=== PATIENT | female | born 1985 | race Caucasian/White ===

== ENCOUNTER → 2018-03-17 | Outpatient (REF) ==
[2018-03-17 13:34] LABS: COLLAGEN EPINEPHRINE 127 SECONDS (74-162)
== END ==
LOC: M LAB REF 12:49
DX: Z00.00 Encounter for general adult medical examination without abnormal findings (principal)

== ENCOUNTER → 2020-01-16 | Outpatient (POV) | payer OTHER, MEDICAID | LOC: M PAIN 09:00 | PROVIDERS: ATTEND Nurse Practitioner Family | DX: M46.1 Sacroiliitis, not elsewhere classified (principal); M79.18 Myalgia, other site; M51.27 Other intervertebral disc displacement, lumbosacral region ==

== ENCOUNTER → 2020-01-26 | Outpatient (POV) | payer OTHER, MEDICAID ==
[~2020-01-26] MED LIST: ISOVUE-M 300 61% 15ML VIAL As Ordered ONE; LIDOCAINE 1% SDV 30ML VIAL As Ordered ONE; NORCO, ANEXSIA 5/325MG TABLET (HYDROcodone/ACETAMINOPHEN) As Ordered ONE; diazePAM 5 MG TAB As Ordered ONE; methylPREDNISolone SUSP 40MG/ML 1ML VIAL (DEPO MEDROL) As Ordered ONE
== END ==
LOC: M PAIN 11:00
PROVIDERS: ATTEND Anesthesiology
DX: M51.16 Intervertebral disc disorders with radiculopathy, lumbar region (principal)

== ENCOUNTER → 2020-02-10 | Outpatient (CLI) | payer OTHER | LOC: M PAIN 10:31 | PROVIDERS: ATTEND Nurse Practitioner Family | DX: M51.16 Intervertebral disc disorders with radiculopathy, lumbar region (principal) ==

== ENCOUNTER → 2020-02-18 | Outpatient (CLI) | payer OTHER | LOC: M LABSMTC 10:32 | PROVIDERS: ATTEND Anesthesiology | DX: Z11.59 Encounter for screening for other viral diseases (principal); Z20.828 Contact with and (suspected) exposure to other viral communicable diseases | CPT/HCPCS: C9803; U0003 ==

== ENCOUNTER → 2020-03-13 | Outpatient (CLI) | payer OTHER | LOC: M PAIN 14:00 | PROVIDERS: ATTEND Nurse Practitioner Family | DX: Z53.29 Procedure and treatment not carried out because of patient's decision for other reasons (principal) ==

== ENCOUNTER → 2020-04-27 | Outpatient (CLI) | payer OTHER ==
--- NOTE | 2020-04-30 23:50 | ECWPNPC ---
PATIENT NAME: SUSAN DEL CASTILLO : 1985 GENDER: FEMALE VISIT DATE: 04/27/2020 DISCHARGE DATE: 04/27/20 1043 VISIT LOCKED DATE TIME: PHYSICIAN: JULIETTE QUILES RESOURCE: JULIETTE QUILES REASON FOR APPOINTMENT 1. BACK/RIGHT LEG HISTORY OF PRESENT ILLNESS DEPRESSION SCREENING: PHQ-2 (2015 EDITION) LITTLE INTEREST OR PLEASURE IN DOING THINGS?NOT AT ALL FEELING DOWN, DEPRESSED, OR HOPELESS?NOT AT ALL TOTAL SCORE0 GENERAL: HERE FOR FOLLOW-UP OF CHRONIC LOW BACK PAIN WITH RIGHT LEG RADICULAR SYMPTOMS. RECENT FALL INJURY IN . SHE WAS EVALUATED AT [facility]. LOCATION OF PAIN HAS NOT CHANGED SINCE FALL. CHIEF AREA OF PAIN IS RIGHT LOW BACK AND INTO RIGHT THIGH. PATIENT STATES MRI IMAGING WAS DONE AFTER FALL IN . DENIES NEW ONSET OF BOWEL OR BLADDER INCONTINENCE. ATTENDING PHYSICAL THERAPY DUE TO FRACTURED RIGHT ANKLE AFTER FALL INJURY AND STATES THEY ARE ALSO WORKING ON HER LOWER BACK PAIN. APPEARS VERY UNCOMFORTABLE TODAY. PAIN IS INCREASED WITH ANY PRESSURE OVER HER RIGHT LEG. WAS EVALUATED BY NEUROSURGEON IN [place] AFTER OUR LAST VISIT. THEY DID OFFER SURGERY BUT PATIENT WANTED TO TRY CONSERVATIVE MEASURES FIRST. DISCUSSED SACROILIAC NERVE BLOCK.-. FALL RISK SCREENING: SCREENING :ONE FALL WITH INJURY IN THE PAST YEAR FRACTURED RIGHT FOOT AFTER FALL THRU BATHROOM FLOOR PAIN SCREENING: PATIENT HAS A COMPLAINT OF ACUTE OR CHRONIC PAIN :YES LOCATION OF PAIN:LOW BACK, RIGHT HIP, LEG(S) RIGHT LEG TO KNEE INTENSITY OF PAIN (SCALE OF 1 TO 10):7 WHAT DOES YOUR PAIN FEEL LIKE:ACHING, BURNING, CONTINOUS, SHARP, TENDER, THROBBING, SORE, SHOOTING DURATION:CONTINOUS, CONSTANT PAIN IS INCREASED BY:ACTIVITIES PAIN IS DECREASED BY:USE OF PAIN MEDICATIONS NURSING NOTE: -. PAIN CENTER INTAKE QUESTIONS: DO YOU HAVE A HISTORY OF MRSA? :NO DO YOU TAKE A BLOOD THINNERS? :NO DO YOU HAVE ANY BLEEDING DISORDERS? :NO ANY NEW NUMBNESS OR WEAKNESS IN YOUR LEGS OR ARMS? :NO ANY PACEMAKER,DEFIBRILLATOR, OR DORSAL COLUMN STIMULATOR? :NO DO YOU HAVE ANY RASHES OR OPEN SORES? :NO ARE YOU ALLERGIC TO IV DYE? :NO ARE YOU DIABETIC? :NO ANY NEW PROBLEMS WITH YOUR MEDICATIONS? :NO HAVE YOU RECEIVED A VACCINE IN THE PAST 30 DAYS? :NO DO YOU PLAN TO RECEIVE A VACCINE IN THE NEXT 21 DAYS? :NO DO YOU NEED ANY PRESCRIPTION? :NO DO YOU TAKE ANY IMMUNOSUPPRESSIVE MEDICATIONS? :NO IS THERE A CHANCE YOU COULD BE ? :NO ARE YOU BREAST FEEDING? :NO CURRENT MEDICATIONS TAKING GABAPENTIN 600 MG TABLET TAKE ONE TABLET BY MOUTH THREE TIMES A DAY ORAL TAKING FLUTICASONE PROPIONATE 50 MCG/ACT SUSPENSION SPRAY 1 SPRAY IN EACH NOSTRIL TWICE A DAY NASAL TAKING IBUPROFEN 800 MG TABLET TAKE 1 TABLET BY MOUTH THREE TIMES A DAY NEEDED FOR PAIN ORAL NOT-TAKING CIPROFLOXACIN HCL 250 MG TABLET TAKE ONE TABLET BY MOUTH TWICE A DAY FOR 3 DAYS ORAL NOT-TAKING METHYLPREDNISOLONE 4 MG TABLET THERAPY PACK TAKE BY MOUTH DIRECTED ORAL NOT-TAKING CYCLOBENZAPRINE HCL 10 MG TABLET TAKE 1 TABLET BY MOUTH UP TO 3 TIMES A DAY MAY CAUSE DROWSINESS ORAL NOT-TAKING DIAZEPAM 10 MG TABLET (SCHEDULE IV DRUG) TAKE ONE TABLET BY MOUTH FOUR TIMES A DAY NEEDED MAXIMUM DAILY DOSE 4 ORAL NOT-TAKING PREDNISONE 20 MG TABLET TAKE THREE TABLETS BY MOUTH EVERY DAY ORAL NOT-TAKING TIZANIDINE HCL 4 MG CAPSULE TAKE 1 CAPSULE BY MOUTH EVERY 6 TO 8 HOURS NEEDED ORAL NOT-TAKING CEFDINIR 300 MG CAPSULE TAKE 1 CAPSULE BY MOUTH TWICE DAILY FOR 10 DAYS ORAL MEDICATION LIST REVIEWED AND RECONCILED WITH THE PATIENT PAST MEDICAL HISTORY 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 ACUTE SINUSITIS PAIN IN RIGHT LEG ACUTE SEROUS OTITIS MEDIA URINARY TRACT INFECTION MIGRAINE WITHOUT AURA MAJOR DEPRESSIVE DISORDER SPONTANEOUS ECCYMOSIS POLYNEUROPATHY PAIN LEFT ARM ACUTE RESPIRATORY INFECTION ELEVATED ESR OBESITY ALLERGIES SEASONAL: RASH - ALLERGY SULFA (FOR ALLERGY USE ONLY): SEIZURE - ALLERGY LATEX (FOR ALLERGY USE ONLY): ANAPHYLAXIS - ALLERGY SURGICAL HISTORY 2013 & 2017 EXPL LAPAROTOMY 05/2006 TONSILLECTOMY 08/2017 FAMILY HISTORY FATHER: ALIVE 1963 YRS MOTHER: ALIVE 1967 YRS SIBLINGS: ALIVE FATHER- DIABETES, KIDNEY DISEASEMOTHER - HYPERTENSIONSISTER - KIDNEY DISEASE, HYPERTENSIONBROTHER - KIDNEY DISEASE, HYPERTENSION. SOCIAL HISTORY GENERAL: TOBACCO USE ARE YOU A:NONSMOKER LATEX QUESTIONNAIRE LATEX ALLERGY : HAVE YOU EVER DEVELOPED ANY TYPE OF REACTION AFTER HANDLING LATEX PRODUCTS SUCH RUBBER GLOVES, CONDOMS, DIAPHRAGMS, BALLOONS, SOCKS, OR UNDERWEAR?YES LATEX ALLERGY : HAVE YOU EVER DEVELOPED ANY TYPE OF REACTION DURING OR AFTER DENTAL APPOINTMENT, VAGINAL/RECTAL EXAMINATION, SURGICAL PROCEDURE, OR ANY OTHER EXPOSURE?NO LATEX RISK : HAVE YOU EVER HAD ANY DIFFICULTY BREATHING OR HIVES AFTER EATING OR HANDLING ANY FRUITS, OR VEGETABLES; SUCH KIWI, BANANAS, STONE FRUITS, OR CHESTNUTSNO LATEX RISK : DO YOU HAVE A PREVIOUS PERSONAL HISTORY OF MORE THAN NINE SURGERIES, SPINA BIFIDA, OR REPEATED CATHERIZATIONS? NO LATEX RISK : ARE YOU FREQUENTLY EXPOSED TO LATEX PRODUCTS IN YOUR OCCUPATION?NO DATE ASKED : 04/27/2020 LEARNING BARRIERS / SPECIAL NEEDS CHANGE FROM LAST VISIT?NO BARRIERS TO LEARNING?NO HEARING IMPAIRED?NO VISION IMPAIRED?NO COGNITIVELY IMPAIRED?NO READINESS TO LEARN?YES LEARNING PREFERENCES?NO LEARNING CAPABILITIES PRESENT?YES EMOTIONAL BARRIERS?NO SPECIAL DEVICES?NO FULFILLMENT ASSOCIATE NEEDED?NO DOMESTIC VIOLENCE DO YOU FEEL SAFE IN YOUR ENVIRONMENT?YES PAIN CLINIC PFS, CLERGY, PUBLIC HEALTH REFERRALS HAS THE PATIENT BEEN EDUCATED REGARDING HIS/HER PLAN OF CARE?YES HAS THE PATIENT BEEN EDUCATED REGARDING PAIN, THE RISK FOR PAIN, THE IMPORTANCE OF EFFECTIVE PAIN MANAGEMENT, AND THE PAIN ASSESSMENT PROCESS?YES ADVANCE DIRECTIVE ADVANCE DIRECTIVE DISCUSSED WITH PATIENT:YES PT STATES THAT SHE DOES NOT HAVE HCP, DECLINED INFORMATION HOSPITALIZATION/MAJOR DIAGNOSTIC PROCEDURE NO HOSPITALIZATION HISTORY. REVIEW OF SYSTEMS CONSTITUTIONAL: ANY RECENT FEVER NO . CHILLS NO . WEIGHT CHANGE OF UNKNOWN REASONS NO . GASTROENTEROLOGY: NEW UNEXPLAINABLE CHANGES IN BOWEL CONTROL NO . CONSTIPATION NO . GENITOURINARY: ANY NEW CHANGE IN BLADDER CONTROL? NO . NEUROLOGY: NEW ONSET DIZZINESS OR NEUROLOGICAL CHANGES NOT MENTIONED NO . NEW NUMBNESS OR PAIN PATTERNS NOT MENTIONED AND PERTINENT TO TODAY'S VISIT NO . CARDIOLOGY: NEW CHEST PRESSURE NO . NEW CHEST PAIN NO . RESPIRATORY: UNEXPLAINABLE COUGH NO . NEW SHORTNESS OF BREATH NO . VITAL SIGNS WT 256.8 LBS, HT 54 IN, BMI 61.91 INDEX, BP 131/74 MM HG, HR 87 /MIN, RR 18 /MIN, TEMP 96.7 F, OXYGEN SAT % 100%, SAFE IN ENV? (Y/N) YES, NA INITIALS AW 0949, REVIEWED BY: JAKOB RN @1001. EXAMINATION GENERAL EXAMINATION: GENERAL ALERT,NO DISTRESS . PSYCH AFFECT NORMAL . LUNGS: LUNG SOUNDS ARE CLEAR . HEART: HEART RATE REGULAR . MUSCULOSKELETAL: MST 10/10 BILAT. LOWER EXTREMITIES . LUMBAR: TENDERNESS RIGHT SIJ . DIAGNOSTIC TESTS REVIEWEDMRI L/S SPINE 10/2019. 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 PROCEDURE CODES FA211 ESTABILISHED PATIENT [facility] CHARGE DISPOSITION & COMMUNICATION FOLLOW UP POST PROCEDURE (REASON: RIGHT SIJ) ELECTRONICALLY SIGNED BY ZANE STRONG ON 04/30/2020 AT 03:27 PM EST DISCLAIMER : THIS IS A VISIT SUMMARY EXTRACTED FROM THE [employer] CHART. IT IS NOT A COPY OF THE [employer] PROGRESS NOTE. RASHMI
== END ==
LOC: M PAIN 09:45
PROVIDERS: ATTEND Nurse Practitioner Family
DX: M53.3 Sacrococcygeal disorders, not elsewhere classified (principal); G89.29 Other chronic pain; G43.909 Migraine, unspecified, not intractable, without status migrainosus; Z86.59 Personal history of other mental and behavioral disorders; Z88.2 Allergy status to sulfonamides; Z91.040 Latex allergy status; E66.01 Morbid (severe) obesity due to excess calories; Z68.44 Body mass index [BMI] 60.0-69.9, adult; Z79.899 Other long term (current) drug therapy

== ENCOUNTER → 2020-06-27 | Outpatient (CLI) | payer OTHER | LOC: M LABSMTC 14:11 | PROVIDERS: ATTEND Anesthesiology | DX: Z20.822 Contact with and (suspected) exposure to COVID-19 (principal) ==

== ENCOUNTER → 2020-07-02 | Outpatient (CLI) | payer OTHER ==
[~2020-07-02] MED LIST changes: +BUPIVACAINE HCL 0.25% 30ML VIAL As Ordered ONE; -NORCO, ANEXSIA 5/325MG TABLET (HYDROcodone/ACETAMINOPHEN) As Ordered ONE; +TRIAMCINOLONE ACETONIDE SUSP 40 MG/ML VIAL (J3301) As Ordered ONE; -diazePAM 5 MG TAB As Ordered ONE; +diazePAM 5MG TABLET As Ordered ONE; -methylPREDNISolone SUSP 40MG/ML 1ML VIAL (DEPO MEDROL) As Ordered ONE; +oxyCODONE 5MG TAB As Ordered ONE
--- NOTE | 2020-07-02 16:37 | REP ---
INDICATION: RIGHT SIDED SACRO ILIAC JOINT BLOCK. COMPARISON: None. TECHNIQUE: Three views. 20.5 seconds of fluoroscopy time is reported. FINDINGS: A sequence of 3 last image hold fluoroscopically obtained spot radiographs of the right hip document needle position and contrast injection associated with injection procedure. IMPRESSION: Procedural imaging. <Electronically signed by Magdiel Cancino > 07/02/20 [id number]
--- NOTE | 2020-07-04 01:40 | ECWPNPC ---
PATIENT NAME: SUSAN DEL CASTILLO : 1985 GENDER: FEMALE VISIT DATE: 07/02/2020 DISCHARGE DATE: 07/02/20 1558 VISIT LOCKED DATE TIME: PHYSICIAN: ULISES BAKER MD RESOURCE: ULISES BAKER MD REASON FOR APPOINTMENT 1. RIGHT SACROILIAC JOINT BLOCK HISTORY OF PRESENT ILLNESS GENERAL: -. FALL RISK SCREENING: SCREENING :ONE FALL WITH INJURY IN THE PAST YEAR FRACTURED RIGHT FOOT AFTER FALL THRU BATHROOM FLOOR 02/25 PAIN SCREENING: PATIENT HAS A COMPLAINT OF ACUTE OR CHRONIC PAIN :YES LOCATION OF PAIN:LOW BACK, RIGHT HIP, LEG(S) RIGHT LEG TO KNEE INTENSITY OF PAIN (SCALE OF 1 TO 10):5 WHAT DOES YOUR PAIN FEEL LIKE:ACHING, BURNING, CONTINOUS, SHARP, TENDER, THROBBING, SORE, SHOOTING DURATION:CONTINOUS, CONSTANT PAIN IS INCREASED BY:ACTIVITIES PAIN IS DECREASED BY:USE OF PAIN MEDICATIONS PLAN/GOALS/TREATMENT/INTERVENTION/FOLLOW UP:SEE PLAN PAIN CENTER INTAKE QUESTIONS: DO YOU HAVE A HISTORY OF MRSA? :NO DO YOU TAKE A BLOOD THINNERS? :NO DO YOU HAVE ANY BLEEDING DISORDERS? :NO ANY NEW NUMBNESS OR WEAKNESS IN YOUR LEGS OR ARMS? :NO ANY PACEMAKER,DEFIBRILLATOR, OR DORSAL COLUMN STIMULATOR? :NO DO YOU HAVE ANY RASHES OR OPEN SORES? :NO ARE YOU ALLERGIC TO IV DYE? :NO ARE YOU DIABETIC? :NO ANY NEW PROBLEMS WITH YOUR MEDICATIONS? :NO HAVE YOU RECEIVED A VACCINE IN THE PAST 30 DAYS? :NO DO YOU PLAN TO RECEIVE A VACCINE IN THE NEXT 21 DAYS? :NO DO YOU NEED ANY PRESCRIPTION? :NO DO YOU TAKE ANY IMMUNOSUPPRESSIVE MEDICATIONS? :NO ANY HISTORY OF SEIZURES? :NO ANY HISTORY OF CARDIAC ISSUES OR EVENTS? :NO DO YOU HAVE SLEEP APNEA? :NO ANY RECENT HEAD INJURY? :NO DO YOU HAVE ANY NEW INFECTIONS? :NO IS THERE A CHANCE YOU COULD BE ? :NO ARE YOU BREAST FEEDING? :NO WHEN DID YOU LAST EAT? : 07/02/20 0545 WHEN DID YOU LAST DRINK? : 07/02/20 1200 WHAT DID YOU LAST DRINK? : WATER NAME OF PERSON DRIVING YOU HOME? : FRIEND DO YOU HAVE ANY OTHER QUESTIONS OR CONCERNS? : NO CURRENT MEDICATIONS TAKING GABAPENTIN 600 MG TABLET TAKE ONE TABLET BY MOUTH THREE TIMES A DAY ORAL , NOTES: 07/02/20 1230 TAKING FLUTICASONE PROPIONATE 50 MCG/ACT SUSPENSION SPRAY 1 SPRAY IN EACH NOSTRIL TWICE A DAY NASAL TAKING CYMBALTA 30 MG CAPSULE DELAYED RELEASE PARTICLES 1 CAPSULE ORALLY ONCE A DAY, NOTES: 07/01/20 2100 NOT-TAKING IBUPROFEN 800 MG TABLET TAKE 1 TABLET BY MOUTH THREE TIMES A DAY NEEDED FOR PAIN ORAL NOT-TAKING CIPROFLOXACIN HCL 250 MG TABLET TAKE ONE TABLET BY MOUTH TWICE A DAY FOR 3 DAYS ORAL NOT-TAKING METHYLPREDNISOLONE 4 MG TABLET THERAPY PACK TAKE BY MOUTH DIRECTED ORAL NOT-TAKING CYCLOBENZAPRINE HCL 10 MG TABLET TAKE 1 TABLET BY MOUTH UP TO 3 TIMES A DAY MAY CAUSE DROWSINESS ORAL NOT-TAKING DIAZEPAM 10 MG TABLET (SCHEDULE IV DRUG) TAKE ONE TABLET BY MOUTH FOUR TIMES A DAY NEEDED MAXIMUM DAILY DOSE 4 ORAL NOT-TAKING PREDNISONE 20 MG TABLET TAKE THREE TABLETS BY MOUTH EVERY DAY ORAL NOT-TAKING TIZANIDINE HCL 4 MG CAPSULE TAKE 1 CAPSULE BY MOUTH EVERY 6 TO 8 HOURS NEEDED ORAL NOT-TAKING CEFDINIR 300 MG CAPSULE TAKE 1 CAPSULE BY MOUTH TWICE DAILY FOR 10 DAYS ORAL MEDICATION LIST REVIEWED AND RECONCILED WITH THE PATIENT PAST MEDICAL HISTORY 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 ACUTE SINUSITIS PAIN IN RIGHT LEG, RIGHT FRACTURE TIBIA ACUTE SEROUS OTITIS MEDIA URINARY TRACT INFECTION MIGRAINE WITHOUT AURA MAJOR DEPRESSIVE DISORDER SPONTANEOUS ECCYMOSIS POLYNEUROPATHY PAIN LEFT ARM ACUTE RESPIRATORY INFECTION ELEVATED ESR OBESITY ALLERGIES SEASONAL: RASH - ALLERGY SULFA (FOR ALLERGY USE ONLY): SEIZURE - ALLERGY LATEX (FOR ALLERGY USE ONLY): ANAPHYLAXIS - ALLERGY SOCIAL HISTORY GENERAL: TOBACCO USE ARE YOU A:NONSMOKER LATEX QUESTIONNAIRE LATEX ALLERGY : HAVE YOU EVER DEVELOPED ANY TYPE OF REACTION AFTER HANDLING LATEX PRODUCTS SUCH RUBBER GLOVES, CONDOMS, DIAPHRAGMS, BALLOONS, SOCKS, OR UNDERWEAR?YES KNOWN ALLERGY - PLEASE INDICATE :RUBBER GLOVES, OTHER (DOCUMENT IN NOTES) BANDAIDS LATEX ALLERGY : HAVE YOU EVER DEVELOPED ANY TYPE OF REACTION DURING OR AFTER DENTAL APPOINTMENT, VAGINAL/RECTAL EXAMINATION, SURGICAL PROCEDURE, OR ANY OTHER EXPOSURE?NO LATEX RISK : HAVE YOU EVER HAD ANY DIFFICULTY BREATHING OR HIVES AFTER EATING OR HANDLING ANY FRUITS, OR VEGETABLES; SUCH KIWI, BANANAS, STONE FRUITS, OR CHESTNUTSNO LATEX RISK : DO YOU HAVE A PREVIOUS PERSONAL HISTORY OF MORE THAN NINE SURGERIES, SPINA BIFIDA, OR REPEATED CATHERIZATIONS? NO LATEX RISK : ARE YOU FREQUENTLY EXPOSED TO LATEX PRODUCTS IN YOUR OCCUPATION?NO DATE ASKED : 04/27/2020 ALCOHOL USE: LEONORA FERRIS 06/29/2020 3:20:22 PM > , NO. ALCOHOL SCREENING DID YOU HAVE A DRINK CONTAINING ALCOHOL IN THE PAST YEAR?NO POINTS0 INTERPRETATIONNEGATIVE RECREATIONAL DRUG USE DRUG USE?NO LEARNING BARRIERS / SPECIAL NEEDS CHANGE FROM LAST VISIT?NO BARRIERS TO LEARNING?NO HEARING IMPAIRED?NO VISION IMPAIRED?NO COGNITIVELY IMPAIRED?NO READINESS TO LEARN?YES LEARNING PREFERENCES?NO LEARNING CAPABILITIES PRESENT?YES EMOTIONAL BARRIERS?NO SPECIAL DEVICES?NO CONVENTION SERVICES DIRECTOR NEEDED?NO DOMESTIC VIOLENCE DO YOU FEEL SAFE IN YOUR ENVIRONMENT?YES - HAS THE PATIENT BEEN EDUCATED REGARDING HIS/HER PLAN OF CARE?YES HAS THE PATIENT BEEN EDUCATED REGARDING PAIN, THE RISK FOR PAIN, THE IMPORTANCE OF EFFECTIVE PAIN MANAGEMENT, AND THE PAIN ASSESSMENT PROCESS?YES ADVANCE DIRECTIVE ADVANCE DIRECTIVE DISCUSSED WITH PATIENT:YES PT STATES THAT SHE DOES NOT HAVE HCP, DECLINED INFORMATION VITAL SIGNS WT 254.4 LBS, HT 54 IN, BMI 61.33 INDEX, BP 138/77 MM HG, HR 90 /MIN, RR 18 /MIN, TEMP 97.0 F, OXYGEN SAT % 98%, SAFE IN ENV? (Y/N) YES, NA INITIALS AW 1350, REVIEWED BY: Darian FERRIS MANAGER WOUND CARE. EXAMINATION GENERAL EXAMINATION: THE PATIENT IS ALERT, ORIENTED TIMES THREE AND COOPERATIVE. LUNGS ARE CLEAR TO AUSCULTATION. HEART SHOWS REGULAR RHYTHM, NO MURMURS AND NO GALLOPS. ASSESSMENTS SACROILIITIS, NOT ELSEWHERE CLASSIFIED - M46.1 (PRIMARY) SACROILIAC JOINT DYSFUNCTION - M53.3 TREATMENT SACROILIITIS, NOT ELSEWHERE CLASSIFIED [facility] GUIDANCE (PAIN)[id number] MEDICATION: VALIUM TAB 10MG ORALLY (DIAZEPAM)LEONORA FERRIS 07/02/2020 2:24:37 PM > LOT # [id number] EXP: 03/29. CAROLINARAUDEL ADAMES 07/02/2020 2:25:31 PM > VERIFIED LEONORA FERRIS 07/02/2020 3:43:23 PM > ADMINISTERED AT 1426. MEDICATION: OXYCODONE HCL TAB 10MG ORALLYLEONORA FERRIS 07/02/2020 2:23:48 PM > LOT # [id number] EXP: 07/30. RAUDEL FIGUEROA 07/02/2020 2:24:55 PM > VERIFIED LEONORA FERRIS 07/02/2020 3:43:42 PM > ADMINISTERED AT 1426. COMPLETION OF PROCEDURAL VISIT WHEN MEETS CRITERIA OTHERS NOTES: 06/29/20 1522 PAT COMPLETED WITH PATIENT. PATIENT DENIES ANY CHANGES FROM PREVIOUS VISIT TO FAMILY HISTORY, SURGICAL HISTORY OR HOSPITALIZATIONS. Darian FERRIS RN BSN . PROCEDURES PAIN NURSING RECORD PROCEDURE IN ROOM 1445, PHYSICIAN IN ROOM 1521, START 1530, FINISH 1532, PHYSICIAN OUT OF ROOM 1533, OUT OF ROOM 1539, ECG NORMAL SINUS, PATIENT SHIELDED YES, SAFETY STRAP YES, PREP CHLOROPREP Darian FERRIS RN BSN, DRESSING TEGADERM DR. BAKER LOC: LEONORA FERRIS 07/02/2020 2:45:48 PM > , 1. ALERT, ORIENTED, LOC REMAINED AT BASELINE THROUGHOUT THE PROCEDURE RESP: LEONORA FERRIS 07/02/2020 2:45:48 PM > , 1. REGULAR, NO DYSPNEA COLOR: LEONORA FERRIS 07/02/2020 2:45:48 PM > , 1. PINK SKIN: LEONORA FERRIS 07/02/2020 2:45:48 PM > , 1. WARM, DRY POSITION: LEONORA FERRIS 07/02/2020 2:45:48 PM > , 1. PRONE VITALS: LEONORA FERRIS 07/02/2020 2:47:48 PM > 132/77, 79, 97% RA. LEONORA FERRIS 07/02/2020 3:00:24 PM > 137/81, 84, 97% RA. LEONORA FERRIS 07/02/2020 3:15:08 PM > 140/86, 86, 96% RA. LEONORA FERRIS 07/02/2020 3:29:36 PM > 155/87, 86, 96% RA. LEONORA FERRIS 07/02/2020 3:50:09 PM > 132/76, 85, 97% RA. COMPLETION OF PROCEDURE APPOINTMENT: POST PAIN 09/15, DRESSING SITE DRY AND INTACT, IV N/A, GAIT STEADY, TEACHING COMPLETED, PATIENT ACKNOWLEDGES UNDERSTANDING YES PATIENT GIVEN COVID HANDOUT AND POST PROCEDURE TEACHING, PATIENT VERBALIZED UNDERSTANDING, NO QUESTIONS OR CONCERNS AT THIS TIME., PROCEDURE APPOINTMENT COMPLETED AT BY: Darian FERRIS RN AT 1600. PRE PROCEDURE DIAGNOSIS SACROILITIS, SACROILIAC JOINT DYSFUNCTION POST PROCEDURE DIAGNOSIS SACROILIITIS, SACROILIAC JOINT DYSFUNCTION PROCEDURE RIGHT SACROILIAC JOINT BLOCK SURGEON DR. ULISES BAKER CANOE INSPECTOR FINAL NONE ANESTHESIA LOCAL PRE PROCEDURE NOTE THE PATIENT HAS A HISTORY OF CHRONIC LOW BACK PAIN. I EVALUATED THE PATIENT AND REVIEWED THE CHART. I WENT OVER THE RISKS, BENEFITS AND ALTERNATIVES ASSOCIATED WITH THIS PROCEDURE. I DISCUSSED THAT THE USE OF STEROIDS MAY CONTRIBUTE TO IMMUNOSUPPRESSION OF THE PATIENT'S BODY AGAINST INFECTIONS SUCH COVID-19. THE PATIENT IS AWARE OF THE POTENTIAL COMPLICATIONS ASSOCIATED WITH THIS VIRUS, INCLUDING, BUT NOT LIMITED, . THE PATIENT WOULD LIKE TO PROCEED AND GIVES CONSENT TO PERFORM THE PROCEDURE. THE PATIENT DENIES UNEXPLAINABLE WEIGHT LOSS, FEVER, CHILLS OR NEW CHANGES IN URINARY OR BOWEL CONTROL. THE PATIENT IS COVID-19 NEGATIVE. DESCRIPTION OF PROCEDURE THE PATIENT WAS BROUGHT TO THE PROCEDURE ROOM AND PLACED IN THE PRONE POSITION. THE LUMBOSACRAL AREA WAS CLEANED WITH CHLORAPREP SOLUTION AND DRAPED ASEPTICALLY. THE PROCEDURE WAS DONE UNDER STERILE CONDITIONS. A TIMEOUT WAS PERFORMED WHERE LATERALITY AND THE SITE OF THE PROCEDURE WERE CHECKED AND CONFIRMED WITH EVERYONE IN THE ROOM. UNDER FLUOROSCOPIC GUIDANCE, THE TARGET POINT WAS SELECTED AT THE LOWER BORDER OF THE RIGHT SACROILIAC JOINT. TARGET POINT WAS SELECTED AFTER MEDIAL ROTATION AND TILT OF THE MAGNIFIER OR THE C-ARM. I CONFIRMED AGAIN WITH EVERYONE IN THE ROOM THE LATERALITY OF THE TARGET. LIDOCAINE 0.5% WAS USED TO NUMB THE SKIN AND THE SUBCUTANEOUS TISSUE BELOW IT. SPINAL NEEDLE, 22-GAUGE, WAS ADVANCED UNDER FLUOROSCOPIC GUIDANCE AND FOLLOWING PATIENT FEEDBACK UNTIL THE TARGET WAS TOUCHED. THE POSITION OF THE NEEDLE WAS VERIFIED WITH AP AND OBLIQUE VIEWS. AFTER PROPER POSITION OF THE NEEDLE WAS ACHIEVED, ISOVUE-M DYE 30%, 0.1 ML, WAS INJECTED SHOWING ADEQUATE SPREAD OF THE DYE. KENALOG 40 MG WAS INJECTED. THEN, A SOLUTION OF 3.0 ML OF BUPIVACAINE 0.125% WAS USED TO FLUSH THE NEEDLE. THE MEDICATIONS WERE VERIFIED WITH THE NURSE. THERE WAS NO EVIDENCE OF BLOOD, PARESTHESIA OR CEREBROSPINAL FLUID DURING THE PROCEDURE. THE PATIENT WAS SENT TO THE RECOVERY ROOM. THE PATIENT WAS MOVING THE EXTREMITIES AND DOING WELL. THERE WERE NO COMPLICATIONS DURING THE PROCEDURE. ESTIMATED BLOOD LOSS WAS LESS THAN 5 ML. FLUOROSCOPIC TIME WAS 20 SECONDS POST PROCEDURE NOTE DEPENDING ON THE RESULTS, CONSIDER A LUMBAR EPIDURAL STEROID INJECTION AT L5-S1. THE PATIENT WILL BE SEEN IN A FOLLOW UP IN THE NEXT FEW WEEKS. I AM LOOKING FOR LONG LASTING RELIEF FOR THE PATIENT WITH THIS INTERVENTION. INSTRUCTIONS WERE GIVEN, QUESTIONS WERE ANSWERED AND THE PATIENT EXPRESSED UNDERSTANDING AND AGREES WITH THE PAIN. I, HONG LOYOLA, DOCUMENTED THE ABOVE INFORMATION ACTING A SCRIBE FOR DR. BAKER. I HAVE REVIEWED THE ABOVE DOCUMENT WRITTEN BY HONG LOYOLA, DIRECTOR LONG TERM CARE, AND I VERIFY THAT IT IS ACCURATE. PROCEDURE CODES 97138 INJECT SACROILIAC JOINT, MODIFIERS: RT DISPOSITION & COMMUNICATION FOLLOW UP FOLLOW UP WITH PILL MAKER (REASON: POST RIGHT SACROILIAC JOINT BLOCK) ELECTRONICALLY SIGNED BY ULISES BAKER MD, MD ON 07/03/2020 AT 01:55 PM EST DISCLAIMER : THIS IS A VISIT SUMMARY EXTRACTED FROM THE [employer] CHART. IT IS NOT A COPY OF THE [employer] PROGRESS NOTE. RASHMI
== END ==
LOC: M PAIN 14:00
PROVIDERS: ATTEND Anesthesiology
DX: M46.1 Sacroiliitis, not elsewhere classified (principal); M53.3 Sacrococcygeal disorders, not elsewhere classified; G43.909 Migraine, unspecified, not intractable, without status migrainosus; Z86.59 Personal history of other mental and behavioral disorders; Z88.2 Allergy status to sulfonamides; Z91.040 Latex allergy status; E66.01 Morbid (severe) obesity due to excess calories; Z68.44 Body mass index [BMI] 60.0-69.9, adult; Z79.899 Other long term (current) drug therapy
CPT/HCPCS: 27096; J3301; Q9967

== ENCOUNTER → 2020-07-16 | Outpatient (CLI) | payer OTHER ==
--- NOTE | 2020-07-20 05:31 | ECWPNPC ---
PATIENT NAME: SUSAN DEL CASTILLO : 1985 GENDER: FEMALE VISIT DATE: 07/16/2020 DISCHARGE DATE: 07/16/20 1451 VISIT LOCKED DATE TIME: PHYSICIAN: JULIETTE QUILSE RESOURCE: JULIETTE QUILES REASON FOR APPOINTMENT 1. POST RIGHT SACROILIAC JOINT BLOCK HISTORY OF PRESENT ILLNESS GENERAL: HERE FOR POST PROCEDURE FOLLOW-UP. HAD RIGHT SI JOINT BLOCK ON 07/02/2020. REPORTING MARKED IMPROVEMENT IN RIGHT LEG PAIN FOR SHORT TIME POST PROCEDURE THEN PAIN RETURNED TO BASELINE. STATES INJECTION DID NOT HELP LOW BACK PAIN. IS SCHEDULED FOR LUMBAR SURGERY AT [facility] IN [place] ON JULY 23 WHICH IS NEXT WEEK.-. FALL RISK SCREENING: SCREENING :NO FALLS REPORTED IN THE LAST YEAR PAIN SCREENING: PATIENT HAS A COMPLAINT OF ACUTE OR CHRONIC PAIN :YES LOCATION OF PAIN:LOW BACK INTENSITY OF PAIN (SCALE OF 1 TO 10):6 WHAT DOES YOUR PAIN FEEL LIKE:ACHING, BURNING DURATION:CONTINOUS, CONSTANT, ALL DAY PAIN IS INCREASED BY:ACTIVITIES PAIN IS DECREASED BY:USE OF PAIN MEDICATIONS NURSING NOTE: -. PAIN CENTER INTAKE QUESTIONS: DO YOU HAVE A HISTORY OF MRSA? :NO DO YOU TAKE A BLOOD THINNERS? :NO DO YOU HAVE ANY BLEEDING DISORDERS? :NO ANY NEW NUMBNESS OR WEAKNESS IN YOUR LEGS OR ARMS? :NO ANY PACEMAKER,DEFIBRILLATOR, OR DORSAL COLUMN STIMULATOR? :NO DO YOU HAVE ANY RASHES OR OPEN SORES? :NO ARE YOU ALLERGIC TO IV DYE? :NO ARE YOU DIABETIC? :NO ANY NEW PROBLEMS WITH YOUR MEDICATIONS? :NO HAVE YOU RECEIVED A VACCINE IN THE PAST 30 DAYS? :NO DO YOU PLAN TO RECEIVE A VACCINE IN THE NEXT 21 DAYS? :YES IF SO WHAT VACCINE AND WHEN? COVID 07/28/20 DO YOU NEED ANY PRESCRIPTION? :NO DO YOU TAKE ANY IMMUNOSUPPRESSIVE MEDICATIONS? :NO IS THERE A CHANCE YOU COULD BE ? :NO ARE YOU BREAST FEEDING? :NO CURRENT MEDICATIONS TAKING GABAPENTIN 800 MG TABLET TAKE ONE TABLET BY MOUTH THREE TIMES A DAY ORALLY TAKING FLUTICASONE PROPIONATE 50 MCG/ACT SUSPENSION SPRAY 1 SPRAY IN EACH NOSTRIL TWICE A DAY NASAL TAKING CYMBALTA 30 MG CAPSULE DELAYED RELEASE PARTICLES 1 CAPSULE ORALLY ONCE A DAY NOT-TAKING IBUPROFEN 800 MG TABLET TAKE 1 TABLET BY MOUTH THREE TIMES A DAY NEEDED FOR PAIN ORAL NOT-TAKING CIPROFLOXACIN HCL 250 MG TABLET TAKE ONE TABLET BY MOUTH TWICE A DAY FOR 3 DAYS ORAL NOT-TAKING METHYLPREDNISOLONE 4 MG TABLET THERAPY PACK TAKE BY MOUTH DIRECTED ORAL NOT-TAKING CYCLOBENZAPRINE HCL 10 MG TABLET TAKE 1 TABLET BY MOUTH UP TO 3 TIMES A DAY MAY CAUSE DROWSINESS ORAL NOT-TAKING DIAZEPAM 10 MG TABLET (SCHEDULE IV DRUG) TAKE ONE TABLET BY MOUTH FOUR TIMES A DAY NEEDED MAXIMUM DAILY DOSE 4 ORAL NOT-TAKING PREDNISONE 20 MG TABLET TAKE THREE TABLETS BY MOUTH EVERY DAY ORAL NOT-TAKING TIZANIDINE HCL 4 MG CAPSULE TAKE 1 CAPSULE BY MOUTH EVERY 6 TO 8 HOURS NEEDED ORAL NOT-TAKING CEFDINIR 300 MG CAPSULE TAKE 1 CAPSULE BY MOUTH TWICE DAILY FOR 10 DAYS ORAL MEDICATION LIST REVIEWED AND RECONCILED WITH THE PATIENT PAST MEDICAL HISTORY 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 ACUTE SINUSITIS PAIN IN RIGHT LEG, RIGHT FRACTURE TIBIA ACUTE SEROUS OTITIS MEDIA URINARY TRACT INFECTION MIGRAINE WITHOUT AURA MAJOR DEPRESSIVE DISORDER SPONTANEOUS ECCYMOSIS POLYNEUROPATHY PAIN LEFT ARM ACUTE RESPIRATORY INFECTION ELEVATED ESR OBESITY ALLERGIES SEASONAL: RASH - ALLERGY SULFA (FOR ALLERGY USE ONLY): SEIZURE - ALLERGY LATEX (FOR ALLERGY USE ONLY): ANAPHYLAXIS - ALLERGY SOCIAL HISTORY GENERAL: TOBACCO USE ARE YOU A:NONSMOKER LATEX QUESTIONNAIRE LATEX ALLERGY : HAVE YOU EVER DEVELOPED ANY TYPE OF REACTION AFTER HANDLING LATEX PRODUCTS SUCH RUBBER GLOVES, CONDOMS, DIAPHRAGMS, BALLOONS, SOCKS, OR UNDERWEAR?YES KNOWN ALLERGY - PLEASE INDICATE :RUBBER GLOVES, OTHER (DOCUMENT IN NOTES) BANDAIDS LATEX ALLERGY : HAVE YOU EVER DEVELOPED ANY TYPE OF REACTION DURING OR AFTER DENTAL APPOINTMENT, VAGINAL/RECTAL EXAMINATION, SURGICAL PROCEDURE, OR ANY OTHER EXPOSURE?NO LATEX RISK : HAVE YOU EVER HAD ANY DIFFICULTY BREATHING OR HIVES AFTER EATING OR HANDLING ANY FRUITS, OR VEGETABLES; SUCH KIWI, BANANAS, STONE FRUITS, OR CHESTNUTSNO LATEX RISK : DO YOU HAVE A PREVIOUS PERSONAL HISTORY OF MORE THAN NINE SURGERIES, SPINA BIFIDA, OR REPEATED CATHERIZATIONS? NO LATEX RISK : ARE YOU FREQUENTLY EXPOSED TO LATEX PRODUCTS IN YOUR OCCUPATION?NO DATE ASKED : 07/16/2020 ALCOHOL USE: NO. ALCOHOL SCREENING DID YOU HAVE A DRINK CONTAINING ALCOHOL IN THE PAST YEAR?NO POINTS0 INTERPRETATIONNEGATIVE RECREATIONAL DRUG USE DRUG USE?NO LEARNING BARRIERS / SPECIAL NEEDS CHANGE FROM LAST VISIT?NO BARRIERS TO LEARNING?NO HEARING IMPAIRED?NO VISION IMPAIRED?NO COGNITIVELY IMPAIRED?NO READINESS TO LEARN?YES LEARNING PREFERENCES?NO LEARNING CAPABILITIES PRESENT?YES EMOTIONAL BARRIERS?NO SPECIAL DEVICES?NO JUNIOR ACCOUNT MANAGER NEEDED?NO DOMESTIC VIOLENCE DO YOU FEEL SAFE IN YOUR ENVIRONMENT?YES - HAS THE PATIENT BEEN EDUCATED REGARDING HIS/HER PLAN OF CARE?YES HAS THE PATIENT BEEN EDUCATED REGARDING PAIN, THE RISK FOR PAIN, THE IMPORTANCE OF EFFECTIVE PAIN MANAGEMENT, AND THE PAIN ASSESSMENT PROCESS?YES ADVANCE DIRECTIVE ADVANCE DIRECTIVE DISCUSSED WITH PATIENT:YES PT STATES THAT SHE DOES NOT HAVE HCP, DECLINED INFORMATION REVIEW OF SYSTEMS CONSTITUTIONAL: ANY RECENT FEVER NO . CHILLS NO . WEIGHT CHANGE OF UNKNOWN REASONS NO . GASTROENTEROLOGY: NEW UNEXPLAINABLE CHANGES IN BOWEL CONTROL NO . CONSTIPATION NO . GENITOURINARY: ANY NEW CHANGE IN BLADDER CONTROL? NO . NEUROLOGY: NEW ONSET DIZZINESS OR NEUROLOGICAL CHANGES NOT MENTIONED NO . NEW NUMBNESS OR PAIN PATTERNS NOT MENTIONED AND PERTINENT TO TODAY'S VISIT NO . CARDIOLOGY: NEW CHEST PRESSURE NO . NEW CHEST PAIN NO . RESPIRATORY: UNEXPLAINABLE COUGH NO . NEW SHORTNESS OF BREATH NO . VITAL SIGNS WT 256.8 LBS, HT 54 IN, BMI 61.91 INDEX, BP 135/83 MM HG, HR 79 /MIN, RR 18 /MIN, TEMP 96.4 F, OXYGEN SAT % 100%, SAFE IN ENV? (Y/N) YES, NA INITIALS SC 14:26T.ANA HUYNH. EXAMINATION GENERAL EXAMINATION: GENERALNO ACUTE DISTRESS, WELL NOURISHED AND HYDRATED. PSYCHAPPROPRIATE MOOD AND AFFECT . LUNGS:CLEAR TO AUSCULTATION BILATERALLY, NO WHEEZES, RHONCHI, RALES. HEART:NO MURMURS, REGULAR RATE AND RHYTHM. ASSESSMENTS OTHER CHRONIC PAIN - G89.29 (PRIMARY) PROTRUSION OF INTERVERTEBRAL DISC OF LUMBOSACRAL REGION - M51.27 LUMBAR RADICULOPATHY - M54.16 TREATMENT OTHER CHRONIC PAIN PAIN PROCEDURE LOGDATE OF PROCEDURE1PROCEDURE:RIGHT SACROILIAC BLOCKAMOUNT OF PRE SEDATEVALIUM 10MG, OXYCODONE 10MGRESULT:IMPROVEMENT IN RIGHT LEG PAIN FOR APPROXIMATELY 2 WEEKS POST PROCEDURE THEN PAIN RETURNED TO BASELINE NOTES: PATIENT WILL FOLLOW WITH SURGEON. WE WILL NEED A REFERRAL BACK TO OUR CLINIC IF SHE NEEDS TO BE SEEN POST SURGERY. PROCEDURE CODES [id number] ESTABILISHED PATIENT [facility] CHARGE DISPOSITION & COMMUNICATION FOLLOW UP NO FOLLOW-UP NECESSARY (REASON: HAVING LUMBAR SURGERY ON 07/23/2020) ELECTRONICALLY SIGNED BY JULIETTE DEGROOT, [employer] DRILL OPERATOR ON 07/19/2020 AT 08:15 PM EST DISCLAIMER : THIS IS A VISIT SUMMARY EXTRACTED FROM THE [employer] CHART. IT IS NOT A COPY OF THE [facility] PROGRESS NOTE. RASHMI
== END ==
LOC: M PAIN 14:15
PROVIDERS: ATTEND Nurse Practitioner Family
DX: M51.27 Other intervertebral disc displacement, lumbosacral region (principal); M54.16 Radiculopathy, lumbar region; G89.29 Other chronic pain; G43.909 Migraine, unspecified, not intractable, without status migrainosus; Z86.59 Personal history of other mental and behavioral disorders; Z88.2 Allergy status to sulfonamides; Z91.040 Latex allergy status; E66.01 Morbid (severe) obesity due to excess calories; Z68.44 Body mass index [BMI] 60.0-69.9, adult; Z79.899 Other long term (current) drug therapy

== ENCOUNTER → 2021-11-25 | Outpatient (CLI) | payer OTHER | LOC: M PAIN 14:15 | PROVIDERS: ATTEND Nurse Practitioner Family | DX: M96.1 Postlaminectomy syndrome, not elsewhere classified (principal); G89.29 Other chronic pain; G43.909 Migraine, unspecified, not intractable, without status migrainosus; Z86.59 Personal history of other mental and behavioral disorders; Z88.2 Allergy status to sulfonamides; Z91.040 Latex allergy status; E66.01 Morbid (severe) obesity due to excess calories; Z68.43 Body mass index [BMI] 50.0-59.9, adult; Z79.899 Other long term (current) drug therapy ==